=== PATIENT | female | born 1960 | race Caucasian/White ===

== ENCOUNTER 2023-05-25 02:39 | Emergency (ER) | payer MEDICARE ==
[2023-05-25] MEDS: Meclizine 25 MG Tab PO ONE (04:06)
[2023-05-25 04:07] LABS: BASOPHILS ABSOLUTE AUTO 0.11 K/uL (0.00-0.10); BASOPHILS PERCENT AUTO 0.8 % (0.1-1.3); EOSINOPHILS ABSOLUTE AUTO 0.25 K/uL (0.00-0.40); EOSINOPHILS PERCENT AUTO 1.8 % (0.0-5.4); HEMATOCRIT 43.7 % (34.3-46.0); HEMOGLOBIN 14.4 g/dL (11.2-15.5); IMMATURE GRAN ABSOLUTE AUTO 0.06 K/uL (0.00-0.23); IMMATURE GRAN PERCENT AUTO 0.4 % (0.0-0.7); LYMPHOCYTES ABSOLUTE AUTO 3.88 K/uL (0.8-3.3); LYMPHOCYTES PERCENT AUTO 27.9 % (11.4-47.7); MEAN CORPUSCULAR HEMOGLOBIN 32.7 pg (31.6-35.5); MEAN CORPUSCULAR VOLUME 99.1 fL (81.4-99.0); MONOCYTES ABSOLUTE AUTO 0.74 K/uL (0.20-0.90); MONOCYTES PERCENT AUTO 5.3 % (3.3-12.6); NEUTROPHILS ABSOLUTE AUTO 8.86 K/uL (1.0-7.6); NEUTROPHILS PERCENT AUTO 63.8 % (40.0-78.1); PLATELET COUNT,PLT 233 K/uL (130-375); RED BLOOD CELL COUNT 4.41 M/uL (3.77-5.24); WHITE BLOOD CELL COUNT,WBC 13.9 K/uL (3.2-11.0)
[2023-05-25 04:27] LABS: ALANINE AMINOTRANSFERASE,ALT 35 U/L (12-78); ALBUMIN 3.6 g/dL (3.4-5.0); ALKALINE PHOSPHATASE 115 U/L (46-116); ASPARTATE AMNIOTRANSFERASE,AST 28 U/L (15-37); BILIRUBIN TOTAL 0.4 mg/dL (0.2-1.0); BLOOD UREA NITROGEN,BUN 26 mg/dL (7-18); CALCIUM 9.2 mg/dL (8.5-10.1); CARBON DIOXIDE,CO2 24 mmol/L (21-32); CHLORIDE,CL 103 mmol/L (100-108); EST CRCL DRUG DOSING (CG) 51.81 mL/min; ESTIMATED GFR 63 mL/min (>60); GLUCOSE RANDOM 136 mg/dL (74-106); POTASSIUM,K 4.8 mmol/L (3.6-5.2); PROTEIN TOTAL,TP 7.3 g/dL (6.4-8.2); SODIUM,NA 139 mmol/L (140-148)
[2023-05-25 04:31] LABS: ANION GAP 16.8 mmol/L (5.0-14.0)
[2023-05-25 04:32] LABS: TROPONIN I HIGH SENSITIVITY 600.4 pg/mL (<=60.3)
[2023-05-25 05:36] LABS: MAGNESIUM 1.9 mg/dL (1.8-2.4); PRO B-TYPE NATRIUR PEPT,BNPPRO 1120 pg/mL (5-125)
[2023-05-25 05:41] LABS: C-REACTIVE PROTEIN < 0.50 mg/dL (<0.50)
[2023-05-25] MEDS: Morphine 10 MG/ML Syringe IVPUSH ONE (05:48)
[2023-05-25] MEDS: Ondansetron 4 MG/2 ML SDV IVPUSH ONE (05:48)
[2023-05-25 06:34] LABS: INR 0.9; PROTHROMBIN TIME 9.2 sec (9.2-10.6)
[2023-05-25] MEDS ORDERED: Sodium Chloride 0.9% 80 ML IV ONE (08:42)
[2023-05-25] MEDS ORDERED: Sodium Chloride 0.9% 10 ML Syringe FLUSH PRN (08:42)
[2023-05-25] MEDS ORDERED: Iopamidol 612 MG/ML 100 ML Bottle IV PRN (08:42)
[2023-05-25] MEDS: Aspirin 325 MG Tab.EC PO ONE (08:47)
[2023-05-25] MEDS: Acetaminophen/HYDROcodone 325-5 MG Tab PO ONE (08:47)
[2023-05-25] MEDS: Heparin Sodium 5,000 Units/ML Vial IVPUSH ONE (08:48)
[2023-05-25] MEDS: Heparin Sodium/D5W 25,000 UNITS/500 ML BAG IV SCH (09:15)
== END 2023-05-25 10:56 | disposition left against medical advice (07) ==
LOC: JP.ED 02:39
DX: M54.2 Cervicalgia (principal); G89.29 Other chronic pain; R07.9 Chest pain, unspecified; R79.89 Other specified abnormal findings of blood chemistry; Z79.899 Other long term (current) drug therapy
CPT/HCPCS: 36415; 71045; 71275; 72040; 72072; 80053; 83735; 83880; 84484; 85025; 85379; 85610; 86140; 93005; 96365; 96366; 96375; 99285; A9270; J1644; J2270; J2405

== ENCOUNTER 2024-08-14 11:09 | Emergency (ER) | payer MEDICARE ==
[2024-08-14] MEDS ORDERED: Sodium Chloride 0.9% 10 ML Syringe FLUSH PRN (12:20)
[2024-08-14] MEDS ORDERED: Iopamidol 755 Mg/ML 100 ML Bottle IV SCH ×2 (12:30→14:00)
[2024-08-14] MEDS ORDERED: Sodium Chloride 0.9% 100 ML IV SCH (12:30)
[2024-08-14] MEDS: HYDROmorphone 0.5 MG/0.5 ML Syringe IVPUSH ONE (14:53)
== END 2024-08-14 15:30 | disposition home or self-care (01) ==
LOC: JP.ED 11:09
DX: R23.8 Other skin changes (principal); M54.9 Dorsalgia, unspecified; I10 Essential (primary) hypertension; K21.9 Gastro-esophageal reflux disease without esophagitis; Z86.16 Personal history of COVID-19; Z79.899 Other long term (current) drug therapy; Z91.030 Bee allergy status
CPT/HCPCS: 96374; 99283-25; 99284; J1171